=== PATIENT | female | born 1990 | race Caucasian/White ===

== ENCOUNTER → 2020-02-16 09:13 | Outpatient (BNVA) | payer SELFPAY | PROVIDERS: Family Provider Nurse Practitioner Family; PCP Nurse Practitioner Family; Visit Provider Nurse Practitioner | DX: Z12.4 Encounter for screening for malignant neoplasm of cervix (principal) | CPT/HCPCS: 88175 ==

== ENCOUNTER → 2020-03-14 10:18 | Outpatient (BNVA) | payer SELFPAY | PROVIDERS: Family Provider Nurse Practitioner Family; PCP Nurse Practitioner; Visit Provider Nurse Practitioner | DX: Z11.59 Encounter for screening for other viral diseases (principal) | CPT/HCPCS: 86705; 86706; 86709; 86803; 87340 ==

== ENCOUNTER → 2020-03-24 16:29 | Outpatient (BNVA) | payer SELFPAY | PROVIDERS: Family Provider Nurse Practitioner Family; PCP Nurse Practitioner; Visit Provider Nurse Practitioner Family | DX: R59.9 Enlarged lymph nodes, unspecified (principal) | CPT/HCPCS: 84443; 85025 ==

== ENCOUNTER 2020-04-06 09:11 | Outpatient (CLI) | payer SELFPAY ==
--- NOTE | 2020-04-06 09:30 | US_ITS ---
WS: [id number] ULTRASOUND ABDOMEN CLINICAL INFORMATION: Increase liver enzymes COMPARISON: None. FINDINGS: Liver Size: Enlarged Craniocaudal length: 19.0 cm. Echogenicity: Coarse Surface nodularity: None. Mass (size and location): None. Bile ducts Intrahepatic ducts: Normal. Common bile duct diameter: 0.3 cm. Gallbladder Normal. Gallstones: None. Gallbladder sludge: None. Gallbladder wall thickening: None. Pericholecystic fluid: None. Sonographic Godinez sign: Absent. Pancreas Normal as visualized. Right kidney: Normal. Hydronephrosis: None. Size: 11.2 cm x 4.2 cm x 3.3 cm Abdominal aorta and IVC Visualized portions are normal. Ascites: None. US/US liver [id number] IMPRESSION: 1. Hepatomegaly with diffuse fatty infiltration. 2. Normal gallbladder. Normal common bile duct. 3. No hydronephrosis in right kidney.
== END 2020-04-06 09:12 | disposition home or self-care (01) ==
LOC: US 09:12
PROVIDERS: PCP Nurse Practitioner; Visit Provider Nurse Practitioner
DX: R74.8 Abnormal levels of other serum enzymes (principal); R16.0 Hepatomegaly, not elsewhere classified; K76.0 Fatty (change of) liver, not elsewhere classified
CPT/HCPCS: 76705

== ENCOUNTER 2020-09-08 20:00 | Outpatient (CLI) | payer OTHER, SELFPAY | END 2020-09-08 20:01 | disposition home or self-care (01) | LOC: SLEEP 09-09 09:17 | PROVIDERS: PCP Nurse Practitioner; Visit Provider Nurse Practitioner | DX: G47.10 Hypersomnia, unspecified (principal); G47.33 Obstructive sleep apnea (adult) (pediatric) | CPT/HCPCS: 80053; 80061; 95810 ==

== ENCOUNTER → 2020-12-20 10:45 | Outpatient (BNVA) | payer OTHER, SELFPAY | PROVIDERS: PCP Nurse Practitioner; Visit Provider Nurse Practitioner | DX: M79.10 Myalgia, unspecified site (principal); E55.9 Vitamin D deficiency, unspecified; T14.8XXA Other injury of unspecified body region, initial encounter; W57.XXXA Bitten or stung by nonvenomous insect and other nonvenomous arthropods, initial encounter | CPT/HCPCS: 80053; 82306; 85651; 86140; 86618; 86666; 86757 ==

== ENCOUNTER → 2021-02-08 08:20 | Outpatient (BNVA) | payer OTHER, SELFPAY | PROVIDERS: PCP Nurse Practitioner; Visit Provider Nurse Practitioner | DX: E28.2 Polycystic ovarian syndrome (principal); E88.81 Metabolic syndrome and other insulin resistance | CPT/HCPCS: 80053; 80061 ==

== ENCOUNTER 2021-06-22 06:09 | Emergency (ER) | payer OTHER, BC, MEDICAID, SELFPAY ==
[2021-06-22 06:21] VITALS: BP 138/67; PULSE 87; RESP 16; TEMP 36.4; O2SAT 96; BMI 30.2
[2021-06-22 07:44] LABS: Basophils # 0.1 10^3/uL (0.0-0.1); Basophils % 0.7 %; Eosinophils # 0.1 10^3/uL (0.0-0.8); Eosinophils % 1.5 %; Hemoglobin 14.6 g/dL (11.5-15.3); Lymphocytes # 2.3 10^3/uL (0.8-4.8); Lymphocytes % 34.3 %; Mean Corpuscular HGB Conc 32.4 g/dL (30.0-36.0); Mean Corpuscular Hemoglobin 27.4 pg (28.0-34.0); Mean Corpuscular Volume 84.4 fl (81-99); Mean Platelet Volume 9.8 fL (7.4-10.4); Monocytes # 0.2 10^3/uL (0.2-0.9); Monocytes % 3.6 %; Neutrophils # 3.99 10^3/uL (1.8-7.7); Neutrophils % 59.9 %; Nucleated Red Blood Cells % 0 %; Platelet Count 304 10^3/cmm (130-400); Red Blood Count 5.33 10^6/uL (4.1-5.3); Red Cell Distribution Width 12.9 % (12.1-15.1); White Blood Count 6.7 10^3/uL (4.0-10.0)
[2021-06-22 07:58] LABS: HCG, Serum Qual Negative (Negative)
[2021-06-22 08:08] LABS: Alanine Aminotransferase 28 U/L (0-33); Albumin Level 4.8 g/dL (3.5-5.2); Alkaline Phosphatase 93 IU/L (35-105); Anion Gap 20.4 (5-19); Aspartate Amino Transferase 19 U/L (0-32); Blood Urea Nitrogen 10 mg/dL (6-20); Calcium 9.4 mg/dL (8.5-10.5); Carbon Dioxide 22 mmol/L (22-29); Chloride 102 mmol/L (98-107); Globulin 2.5 g/dL (1.3-4.6); Glomerular Filtration Rate 187.4 mL/min (90-130); Glucose 79 mg/dL (65-115); Osmolality Calculated 288 mOsm/kg (285-295); Potassium 4.4 mmol/L (3.5-5.1); Sodium 140 mmol/L (136-145); Total Bilirubin 0.3 mg/dL (0.15-1.2); Total Protein 7.3 g/dL (6.6-8.7)
[2021-06-22 08:14] LABS: Add Urine Microscopic? YES; Bilirubin Urine Neg (Negative); Blood Urine Neg (Negative); Glucose Urine UA Norm (Normal); Ketones Urine Negative (Negative); Leukocyte Esterase Urine Negative (Negative); Nitrate Urine Negative (Negative); Protein Urine Neg (Negative); Urine Appearance SL Hazy (CLEAR); Urine Color Yellow (Yellow); Urobilinogen Urine Norm (Negative); pH Urine 5 (5-7)
[2021-06-22 08:15] LABS: RBC Urine 0-4 /hpf (0-2); WBC Urine 0-4 /hpf (0-5)
[2021-06-22 08:16] LABS: Add Urine Culture? No; Bacteria Urine 1+ /hpf; Mucus Urine TRACE /hpf
--- NOTE | 2021-06-22 09:20 | US_ITS ---
WS: [id number] TRANSVAGINAL PELVIC ULTRASOUND HISTORY: L pelvic pain COMPARISON: None available. Uterus: 8.6 cm x 4.4 cm x 3.3 cm. Normal size uterus. No fibroid or mass. Endometrium: 1.2 cm. Normal endometrium. No increased vascularity. Small amount of fluid along the en docervical canal. Right ovary: 2.8 cm x 2.7 cm x 2.1 cm. Normal size ovary with multiple small peripheral follicles. Th e largest follicle measures 1.7 x 1.9 x 1.2 cm. Left ovary: 3.2 cm x 2.5 cm x 2.0 cm. Normal size and vascularity, no cystic or solid masses. Multipl e small follicles. US/US transvaginal [id number] IMPRESSION: 1. Normal endometrium. 2. Multiple small bilateral ovarian follicles. No solid mass.
--- NOTE | 2021-06-22 09:20 | ED_ITS ---
HPI - Abdominal Pain General: Chief Complaint: Abdominal Pain Stated Complaint: abd pains lower into vagina Time Seen by Provider: 06/22/21 08:55 Source: patient Mode of arrival: ambulatory Limitations: no limitations History of Present Illness: HPI narrative: Patient is a 31-year-old female presents to ED today with complaint of left-sided back/abdominal pain. Patient states she woke up this morning feeling normal. She states on her way to work she had acute onset left lower abdomen/pelvic pain that radiated into her back and made her feel nauseous. She described the sensation as warm and burning- like. No vaginal bleeding or vaginal discharge. She does report a history of PCOS. Patient states pain upon onset was 10/10 but is now rating her pain at a 2/10. No previous history of kidney or ureter stones. Denies urinary symptoms. No fevers. Normal BMs. MD elicited complaint: abdominal pain Onset (ago): hour(s) Pain Consistency: other (improved since onset ) Quality: sharp Exacerbating factors: nothing Relieving factors: nothing Associated Symptoms: Reports nausea; Denies change in bowel habits, change in stool character, chills, diarrhea, dysuria, fever(s), hematochezia, hematuria, melena and vomiting Related Data: Date of Last Menstrual Period: 06/11/21 Patient : No Review of Systems Const: Denies: fever(s), chills, body aches, fatigue or malaise Card: Denies: chest pain Resp: Denies: dyspnea GI: Reports: abdominal pain and nausea; Denies: vomiting, diarrhea, change in bowel habits, change in stool character, hematochezia, melena or white/light colored stool : Reports: pelvic pain; Denies: flank pain, difficulty voiding, dysuria, urinary frequency, urinary urgency, urinary hesitancy, hematuria, vaginal odor, vaginal bleeding or vaginal discharge Musc: Reports: back pain; Denies: neck pain, extremity pain, extremity swelling, joint pain or joint swelling Skin/Breast: Denies: rash Neuro: Denies: headache(s), numbness in extremities, weakness in extremities, sensory changes or dizziness [facility] ED PFSH: Medical History Asthma Depression Eczema History of impetigo Metabolic syndrome Obesity, Class I, BMI 30-34.9 PCOS (polycystic ovarian syndrome) Surgical History History of tonsillectomy Family History Mother Cancer Other Diabetes Hypertension Social History Second hand smoke exposure: No Smoking risk assessment/counseling performed?: No Alcohol intake: never Desire information about alcohol rehabilitation?: No Counseling given: No Desire information about substance/drug rehabilitation?: No Counseling given: No Adopted: No Caregiver/support person: No Lives independently: Yes Household members: spouse Housing: House Marital status: Single Number of children: 0 service: No Current occupational status: unemployed Pets and animals: Yes History of recent travel: No Current gender identity: Female Female Reproductive History: Date of last menstrual period: 06/11/21 Physical Exam Const: COMMON NORMALS: no acute distress, patient oriented x3, no limitations and alert GENERAL APPEARANCE: cooperative NUTRITIONAL APPEARANCE: overweight ORIENTATION/CONSCIOUSNESS: Yes awake, Yes oriented to person, Yes oriented to place and Yes oriented to time Resp: COMMON NORMALS: normal respiratory effort and clear to auscultation bilaterally AUSCULTATION: clear to auscultation bilaterally Cardio: COMMON NORMALS: regular rate and regular rhythm RATE: regular rate RHYTHM: regular rhythm GI: COMMON NORMALS: Normal to inspection, nondistended, normoactive bowel sounds present, Soft to palpation, No hepatosplenomegaly present and no masses INSPECTION: Yes normal to inspection PALPATION: Yes Soft to palpation, Yes Tenderness to palpation present (GI) (L lower abdomen/pelvis) and Yes No hepatosplenomegaly present : COMMON NORMALS: Yes no CVA tenderness BLADDER/KIDNEY EXAM: Yes no CVA tenderness Back/Pelvis: COMMON NORMALS: no CVA tenderness Extremity: COMMON NORMALS: normal to inspection, capillary refill normal, no clubbing, cyanosis or edema, no calf tenderness and no pedal edema Neuro: COMMON NORMALS: patient oriented x3 SENSORIUM/ORIENTATION: Yes alert, Yes oriented to person, Yes oriented to place and Yes oriented to time Skin: COMMON NORMALS: no rashes or lesions noted GENERAL SKIN EXAM: no rashes or lesions noted Course Vital Signs: Vital signs: Vital Signs Temperature 97.6 F 06/22/21 06:21 Pulse Rate 80 06/22/21 10:52 Respiratory Rate 14 06/22/21 10:52 Blood Pressure 126/84 06/22/21 10:52 Pulse Oximetry 98 06/22/21 10:52 MDM - Abdominal Pain MDM Narrative: Medical decision making narrative: Patient's pain still much improved from initial onset rating at a 2/10. Vitals are stable. Labs fairly unremarkable. US normal. Recommend close observation of symptoms at home and PCP follow up in 3-5 days if pain persists. Recommended she return to the ED for any worsening of pain, fevers, repetitive episodes of vomiting or diarrhea, or any other concerns she may have. Lab Data: Labs: Lab Results 06/22/21 06/22/21 06/22/21 07:35 07:35 07:35 WBC 6.7 10^3/uL 10^3/ uL (4.0-10.0) RBC 5.33 10^6/uL H 10 ^6/uL (4.1-5.3) Hgb 14.6 g/dL g/dL (11.5-15.3) Hct 45.0 % % (37.0-47.0) MCV 84.4 fl fl (81-99) MCH 27.4 pg L pg (28.0-34.0) MCHC 32.4 g/dL g/dL (30.0-36.0) RDW 12.9 % % (12.1-15.1) Plt Count 304 10^3/cmm 10^3 /cmm (130-400) MPV 9.8 fL fL (7.4-10.4) Neut % (Auto) 59.9 % % Lymph % (Auto) 34.3 % % [place] % (Auto) 3.6 % % Eos % (Auto) 1.5 % % Baso % (Auto) 0.7 % % Neut # (Auto) 3.99 10^3/uL 10^3 /uL (1.8-7.7) Lymph # (Auto) 2.3 10^3/uL 10^3/ uL (0.8-4.8) [place] # (Auto) 0.2 10^3/uL 10^3/ uL (0.2-0.9) Eos # (Auto) 0.1 10^3/uL 10^3/ uL (0.0-0.8) Baso # (Auto) 0.1 10^3/uL 10^3/ uL (0.0-0.1) Nucleated RBC % (a uto) 0 % % Nucleated RBCs # 0.0 /100WBC /100W BC Sodium 140 mmol/L mmol/L (136-145) Potassium 4.4 mmol/L mmol/L (3.5-5.1) Chloride 102 mmol/L mmol/L (98-107) Carbon Dioxide 22 mmol/L mmol/L (22-29) Anion Gap 20.4 H (5-19) BUN 10 mg/dL mg/dL (6-20) Creatinine 0.4 mg/dL L mg/dL (0.5-0.9) GFR Calculation 187.4 mL/min H mL /min (90-130) Glucose 79 mg/dL mg/dL (65-115) Calculated Osmolal ity 288 mOsm/kg mOsm/ kg (285-295) Calcium 9.4 mg/dL mg/dL (8.5-10.5) Total Bilirubin 0.3 mg/dL mg/dL (0.15-1.2) AST 19 U/L U/L (0-32) ALT 28 U/L U/L (0-33) Alkaline Phosphata se 93 IU/L IU/L (35-105) Total Protein 7.3 g/dL g/dL (6.6-8.7) Albumin 4.8 g/dL g/dL (3.5-5.2) Globulin 2.5 g/dL g/dL (1.3-4.6) HCG, Qual Negative (Negative) Urine Color Urine Appearance Urine pH Ur Specific Gravit y Urine Protein Urine Glucose (UA) Urine Ketones Urine Blood Urine Nitrate Urine Bilirubin Urine Urobilinogen Ur Leukocyte Gertrudis ase Urine RBC Urine WBC Ur Squamous Epith Cells Amorphous Sediment Urine Bacteria Urine Mucus 06/22/21 07:50 WBC RBC Hgb Hct MCV MCH MCHC RDW Plt Count MPV Neut % (Auto) Lymph % (Auto) [place] % (Auto) Eos % (Auto) Baso % (Auto) Neut # (Auto) Lymph # (Auto) [place] # (Auto) Eos # (Auto) Baso # (Auto) Nucleated RBC % (a uto) Nucleated RBCs # Sodium Potassium Chloride Carbon Dioxide Anion Gap BUN Creatinine GFR Calculation Glucose Calculated Osmolal ity Calcium Total Bilirubin AST ALT Alkaline Phosphata se Total Protein Albumin Globulin HCG, Qual Urine Color Yellow (Yellow) Urine Appearance Sl hazy (CLEAR) Urine pH 5 (5-7) Ur Specific Gravit y 1.010 (1.005-1.030) Urine Protein Neg (Negative) Urine Glucose (UA) Norm (Normal) Urine Ketones Negative (Negative) Urine Blood Neg (Negative) Urine Nitrate Negative (Negative) Urine Bilirubin Neg (Negative) Urine Urobilinogen Norm mg/dL mg/dL (Negative) Ur Leukocyte Gertrudis ase Negative (Negative) Urine RBC 0-4 /hpf H /hpf (0-2) Urine WBC 0-4 /hpf H /hpf (0-5) Ur Squamous Epith Cells 5-10 /hpf H /hpf (0-5) Amorphous Sediment Not Reportable Urine Bacteria 1+ /hpf H /hpf (NONE) Urine Mucus Trace /hpf /hpf Imaging Data ^: US TV: Radiologist's impression: [employer] [id number] Ultrasound Report Signed Patient: Nichol Gupta Unit #: [id number] : 1990 Age/Sex: 31 / F ADM Date: 06/22/21 Loc: ER Room/Bed: Attending Dr: Ordering Provider/Ordering MD: Alley Jack Date of Service: 06/22/21 Procedure(s): US transvaginal [id number] Accession Number(s): [id number] Report Number: [id number] WS: [id number] TRANSVAGINAL PELVIC ULTRASOUND HISTORY: L pelvic pain COMPARISON: None available. Uterus: 8.6 cm x 4.4 cm x 3.3 cm. Normal size uterus. No fibroid or mass. Endometrium: 1.2 cm. Normal endometrium. No increased vascularity. Small amount of fluid along the endocervical canal. Right ovary: 2.8 cm x 2.7 cm x 2.1 cm. Normal size ovary with multiple small peripheral follicles. The largest follicle measures 1.7 x 1.9 x 1.2 cm. Left ovary: 3.2 cm x 2.5 cm x 2.0 cm. Normal size and vascularity, no cystic or solid masses. Multiple small follicles. US/US transvaginal [id number] IMPRESSION: 1. Normal endometrium. 2. Multiple small bilateral ovarian follicles. No solid mass. Dictated By: Cheryl Mcclure DO Signed By: Cheryl Mcclure DO Signed Date/Time: 06/22/21 1034 DD/ 1032 Discharge Plan Discharge Patient Disposition: Home Clinical Impression: Abdominal pain, left lower quadrant Condition: Stable Prescriptions: No Action ascorbate calcium (vitamin C) 500 mg tablet 500 mg PO BID RF: 0 psyllium husk [Metamucil] 0.4 gram capsule 0.4 g PO DAILY RF: 0 cholecalciferol (vitamin D3) 250 mcg (10,000 unit) capsule 250 mcg PO DAILY RF: 0 silver sulfadiazine [Silvadene] 1 % cream 1 applic topical BID Qty: 50 RF: 0 mupirocin 2 % ointment 1 applic topical BID 10 Days Qty: 15 RF: 0 triamcinolone acetonide 0.1 % ointment 1 applic topical BID 10 Days Qty: 15 RF: 0 Victoza 3-Mark 0.6 mg/0.1 mL (18 mg/3 mL) pen injector 1.2 mg SUBCUT DAILY Qty: 9 RF: 5 metformin 500 mg tablet extended release 24 hr 2,000 mg PO DAILY Qty: 120 RF: 5 (DME) pen needle, diabetic 33 gauge x 5/32 needle See Rx Instructions .ROUTE .MEDSUPPLY Qty: 100 RF: 5 Discharge Orders: Discharge ED (Routine); Ordered 06/22/21 Ordered By: Alley Jack Referrals: Daniel Neil, [employer] [Primary Care Provider] - Patient Instructions: Abdominal Pain (ED) Coding Level of Care Code ED [place] [facility] for Chg Fwd Exam Detailed
[2021-06-22 10:52] VITALS: BP 126/84; PULSE 80; RESP 14; O2SAT 98
--- NOTE | 2021-06-22 11:05 | PC.NURSE ---
REVIEWED DISCHARGE WITH PATIENT, PATIENT VERBALIZES UNDERSTANDING OF ALL INSTRUCTIONS AND NEED FOR FOLLOW UP, WORK NOTE PROVIDED. PATIENT AMBULATED FROM THE ED
== END 2021-06-22 11:06 | disposition home or self-care (01) ==
PROVIDERS: Emergency Provider Physician Assistant; PCP Nurse Practitioner
DX: R10.32 Left lower quadrant pain (principal); Z79.84 Long term (current) use of oral hypoglycemic drugs
CPT/HCPCS: 76830; 80053; 81001; 84703; 85025; 99283

== ENCOUNTER → 2021-06-27 16:42 | Outpatient (BNVA) | payer OTHER, BC, MEDICAID, SELFPAY | PROVIDERS: PCP Nurse Practitioner; Visit Provider Nurse Practitioner | DX: M54.50 Low back pain, unspecified (principal) | CPT/HCPCS: 81000 ==

== ENCOUNTER → 2021-08-28 14:29 | Outpatient (BNVA) | payer BC, MEDICAID, SELFPAY | PROVIDERS: PCP Nurse Practitioner; Visit Provider Nurse Practitioner Family | DX: M79.672 Pain in left foot (principal); M77.32 Calcaneal spur, left foot | CPT/HCPCS: 73630 ==

== ENCOUNTER → 2021-10-02 09:58 | Outpatient (BNVA) | payer BC, MEDICAID, SELFPAY | PROVIDERS: PCP Nurse Practitioner; Referring Provider Nurse Practitioner Family; Visit Provider Podiatrist Foot & Ankle Surgery | DX: E88.81 Metabolic syndrome and other insulin resistance (principal); M72.2 Plantar fascial fibromatosis; E28.2 Polycystic ovarian syndrome; Z87.891 Personal history of nicotine dependence; L03.90 Cellulitis, unspecified; M79.672 Pain in left foot | CPT/HCPCS: 20550; 73630; 80053; 80061; 84443; 85025; 99203; 99204; J1100; J3301; J3490 ==

== ENCOUNTER → 2022-04-17 10:23 | Outpatient (BNVA) | payer BC, MEDICAID, SELFPAY | PROVIDERS: PCP Nurse Practitioner; Visit Provider Nurse Practitioner | DX: E88.81 Metabolic syndrome and other insulin resistance (principal); E28.2 Polycystic ovarian syndrome | CPT/HCPCS: 80053; 80061; 83036 ==